=== PATIENT | female | born 1945 | race Caucasian/White ===

== ENCOUNTER 2016-08-23 14:40 | Emergency (ER) | payer MEDICARE, OTHER ==
[~2016-08-23] VITALS: Wt 71.0 kg
[~2016-08-23 14:40] MED LIST: CARV20CP PO; LEVO125T58 PO; LISI10TA2 PO; METF500T4 PO; OMEP20CA16 PO; PRAM0.5T18 PO; ROSU20TA PO; SITA50TA2 PO; ULT50
[2016-08-23] MEDS ORDERED: ONDANSETRON (ODT) 4 MG TAB ODT STA (18:11)
[2016-08-23] MEDS ORDERED: OXYCODONE/ACETAMINOPHEN (5/325) TAB PO ONE (18:30)
[2016-08-23] MEDS ORDERED: hydrALAzine 20 MG INJ IM ONE (18:30)
--- NOTE | 2016-08-23 19:16 | RADRPT ---
PROCEDURE: XR Knee. CLINICAL INDICATION: Pain TECHNIQUE: 3 views of the right knee are available for review. COMPARISON: None available FINDINGS: Right knee prosthesis is identified in anatomic location. No acute fracture or dislocation is seen. Alignment is anatomic. There is no joint effusion. No other abnormality is identified. RPTAT: ZZ IMPRESSION: 1. Right knee replacement in anatomic location. 2. No acute fracture or dislocation is seen. .Shantel Frank MD, MD Date Time Electronically viewed and signed by .Shantel Frank MD, on 08/23/2016 19:15 .T/
--- NOTE | 2016-08-23 19:27 | ERD ---
ER Documentation Chief Complaint Date/Time DATE: 08/23/16 TIME: 19:22 Chief Complaint right knee pain for the past 3 days. no deformity or trauma HPI Patient reports right knee pain for the last 3 days. She states the knee pain started after she was trying to get up off of the couch that was very low to the ground. She does not report any direct trauma to the knee. She does not report any fever, swelling, redness, rashes, calf pain or tenderness. She says the pain has progressively worsened. She says the pain is worse when she tries to stay in the morning and better when she is lying still. She had a knee replacement done 2 years ago and has done well until several days ago. ROS All systems reviewed and are negative except as per history of present illness. Medications Home Meds Reported Medications Tramadol HCl (Tramadol HCl) 50 Mg Tablet 08/19/12 Pramipexole* (Mirapex*) 0.5 Mg Tablet, 0.5 MG PO PRN 08/19/12 Omeprazole* (Omeprazole*) 20 Mg Capsule.dr, 20 MG PO BID 08/19/12 Rosuvastatin Calcium* (Crestor*) 20 Mg Tablet, 20 MG PO HS 10/10/11 Lisinopril* (Lisinopril*) 10 Mg Tablet, 10 MG PO DAILY 10/10/11 Metformin* (Glucophage*) 500 Mg Tab, 500 MG PO BID 10/10/11 Sitagliptin* (Januvia*) 50 Mg Tablet, 50 MG PO DAILY 10/10/11 Levothyroxine Sodium (Levothroid) 125 Mcg Tablet, 125 MCG PO DAILY 10/10/11 Carvedilol Phosphate CR* (Coreg Cr*) 20 Mg Cpmp.24hr, 20 MG PO DAILY 10/10/11 Allergies Allergies: Coded Allergies: No Known Allergy (Unverified , 08/19/12) PMhx/Soc History of Surgery: Yes (tyhroid remove, uterus and ovary removed, left knee replaced, kidney ston) Anesthesia Reaction: No Hx Neurological Disorder: No Hx Respiratory Disorders: No Hx Cardiac Disorders: Yes (htn, hyperlipidemia) Hx Psychiatric Problems: No Hx Miscellaneous Medical Probl: Yes (oa) Hx Alcohol Use: No Hx Substance Use: No Hx Tobacco Use: No Smoking Status: Never smoker Physical Exam Vitals Vital Signs Date Time Temp Pulse Resp B/P Pulse Ox O2 Delivery O2 Flow Rate FiO2 08/23/16 14:54 98.5 58 20 219/108 100 Physical Exam Const: Well-developed well-nourished female lying on the bed in no acute distress Head: Atraumatic normocephalic Resp: Clear to auscultation bilaterally Cardio: Regular rate and rhythm, no murmurs Abd: Soft, non tender, non distended. Normal bowel sounds Skin: No petechiae or rashes Ext: No cyanosis, or edema, patient reports tenderness to palpation along the right lateral joint line. There are no deformities or crepitus appreciated. She does have some decreased range of motion of the right knee. I do not appreciate any significant joint effusion. There is no overlying erythema or warmth noted. Neur: Awake and alert oriented 3 Psych: Normal Mood and Affect Results 24 hrs Current Medications Medications (Trade) Dose Ordered Sig/Robert Route PRN Reason Start Time Stop Time Status Last Admin Dose Admin Oxycodone/ Acetaminophen (Percocet (5/ 325)) 2 tab ONCE ONCE PO 08/23/16 18:30 08/23/16 18:31 DC 08/23/16 18:30 Ondansetron HCl (Zofran Odt) 4 mg ONCE STAT ODT 08/23/16 18:11 08/23/16 18:13 DC 08/23/16 18:30 Hydralazine HCl (Apresoline) 20 mg ONCE ONCE IM 08/23/16 18:30 08/23/16 18:31 DC Procedures/MDM X-ray does not demonstrate any fractures or dislocations Departure Diagnosis: Primary Impression: Knee pain Laterality: right Chronicity: acute Qualified Code: M25.561 - Acute pain of right knee Condition: Stable Patient Instructions: Knee Immobilizer, Knee Pain, Uncertain Cause, Using Crutches (Weight-Bearing) Additional Instructions: Wear the knee immobilizer and use the crutches for comfort. Please call your orthopedic doctor that did your surgery on her knee and schedule a follow-up appointment with him or her. You may need further evaluation for this knee pain which might include an MRI however this is up to that physician to schedule if needed. Please take the medications as needed for ear pain. Return to the emergency department for any further evaluation if you develop new symptoms. PJ VELASQUEZ Aug 23, 2016 19:27
[2016-08-23] MEDS ORDERED: HYDR-906 PO (19:28)
[2016-08-23] MEDS ORDERED: ETOD300C26 PO (19:28)
[2016-08-23] MEDS ORDERED: ONDA4TAB8 PO (19:29)
[2016-08-23 19:44] VITALS: BP 137/87; PULSE 51; RESP 12; TEMP 97.7
== END 2016-08-23 19:55 | disposition home or self-care (01) ==
LOC: E/R 14:40
DX: M25.561 Pain in right knee (principal); I10 Essential (primary) hypertension; E11.9 Type 2 diabetes mellitus without complications; Z96.652 Presence of left artificial knee joint; Z79.84 Long term (current) use of oral hypoglycemic drugs
CPT/HCPCS: 29505; 73562; J0360

== ENCOUNTER 2018-01-02 03:04 | Inpatient (IN) | END 2018-01-07 11:40 | disposition home or self-care (01) | DRG 872 ==

== ENCOUNTER 2018-11-02 09:23 | Emergency (ER) | payer MEDICARE, OTHER ==
[~2018-11-02] VITALS: Ht 167.6 cm; Wt 97.2 kg
[~2018-11-02 09:23] MED LIST changes: +ASPI-817 PO; +BENA20TA4 PO; -CARV20CP PO; +CARV3.1260 PO; +CEPH-443 PO; +DAPA5TAB PO; +HYDR-4011 PO; -LISI10TA2 PO; +METF-849 PO; -METF500T4 PO; -PRAM0.5T18 PO; +PRAM0.5T5 PO; +TRAM50TA2; -ULT50
[2018-11-02 09:39] VITALS: Ht 167.6 cm; Wt 97.2 kg
[2018-11-02] MEDS ORDERED: ONDANSETRON 4 MG INJ IV STA (11:06)
[2018-11-02] MEDS: HYDROmorphONE 1 MG/ML SYG IV STA ×2 (11:42→11:53)
[2018-11-02] MEDS ORDERED: SOD CHLORIDE 0.9% 100 ML ONE (12:05)
[2018-11-02] MEDS ORDERED: IOHEXOL 300MG/ML 150 ML BTL ONE (12:05)
[2018-11-02] MEDS ORDERED: LEVO112T42 PO (12:51)
[2018-11-02] MEDS ORDERED: ATOR10TA65 PO (12:51)
[2018-11-02] MEDS ORDERED: OMEP40CA6 PO (12:52)
[2018-11-02] MEDS ORDERED: CYAN50TA PO (12:52)
[2018-11-02] MEDS ORDERED: CHOL100062 PO (12:52)
[2018-11-02] MEDS ORDERED: IRBE150T19 PO (12:52)
--- NOTE | 2018-11-02 13:35 | ERD ---
ER Documentation Chief Complaint Chief Complaint Complains of abdominal pain withurine problems x 3 days HPI This is a 73-year-old female complains of left lower quadrant pain for the past 3 days. The pain is a constant dull ache. No nausea vomiting or diarrhea no fever. No pain in the back no hematuria or dysuria. Pain is nonradiating ROS All systems reviewed and are negative except as per history of present illness. Medications Home Meds Active Scripts Carvedilol* (Carvedilol*) 3.125 Mg Tablet, 3.125 MG PO BID for 30 Days, #60 TAB 1 Refill Prov:LYNDON BRADFORD 01/07/18 Reported Medications Cyanocobalamin* (Vitamin B-12*) 50 Mcg Tablet, 50 MCG PO DAILY, TAB 11/02/18 Cholecalciferol* (Vitamin D3*) 1,000 Unit Tablet, 1000 UNIT PO DAILY, TAB 11/02/18 Irbesartan* (Avapro*) 150 Mg Tablet, 150 MG PO DAILY, TAB 11/02/18 Omeprazole* (Omeprazole*) 40 Mg Capsule.dr, 40 MG PO DAILY, #30 CAP 11/02/18 Levothyroxine Sodium* (Levoxyl*) 112 Mcg Tablet, 112 MCG PO BEFORE BREAKFAST, #30 TAB 11/02/18 Atorvastatin Calcium (Atorvastatin Calcium) 10 Mg Tablet, 10 MG PO QHS, #30 TAB 11/02/18 Dapagliflozin Propanediol (Farxiga) 5 Mg Tablet, 5 MG PO DAILY, #30 TAB 01/02/18 Metformin* (Glucophage*) 500 Mg Tab, 500 MG PO BID 10/10/11 Discontinued Reported Medications Aspirin* (Aspirin* EC) 81 Mg Tablet.dr, 81 MG PO DAILY, TAB 01/02/18 Benazepril Hcl* (Benazepril Hcl*) 20 Mg Tablet, 20 MG PO DAILY, #30 TAB 01/02/18 Tramadol HCl (Tramadol HCl) 50 Mg Tablet 08/19/12 Pramipexole* (Mirapex*) 0.5 Mg Tablet, 0.5 MG PO PRN 08/19/12 Omeprazole* (Omeprazole*) 20 Mg Capsule.dr, 20 MG PO BID 08/19/12 Rosuvastatin Calcium* (Crestor*) 20 Mg Tablet, 20 MG PO HS 10/10/11 Sitagliptin* (Januvia*) 50 Mg Tablet, 50 MG PO DAILY 10/10/11 Levothyroxine Sodium (Levothroid) 125 Mcg Tablet, 112 MCG PO DAILY 10/10/11 Discontinued Scripts Cephalexin* (Keflex*) 500 Mg Capsule, 500 MG PO Q8 for 7 Days, #21 CAP Prov:LYNDON BRADFORD 01/07/18 Hydrocodone/Acetaminophen (Easley 5-325 Tablet) 1 Each Tablet, 2 TAB PO Q6H PRN for PAIN, #20 TAB 0 Refills Prov:PJ VELASQUEZ 08/23/16 Allergies Allergies: Coded Allergies: hydromorphone (Verified Allergy, Severe, 11/02/18) hydrocodone (Verified Allergy, Intermediate, NAUSEOUS, 11/02/18) PMhx/Soc History of Surgery: Yes (Hysterectomy, thyroid surgery, bilateral knee replacement, back surgery, ki) Anesthesia Reaction: No Hx Neurological Disorder: No Hx Respiratory Disorders: No Hx Cardiac Disorders: Yes (HTN, hyperlipidemia) Hx Psychiatric Problems: No Hx Miscellaneous Medical Probl: No Hx Alcohol Use: No Hx Substance Use: No Hx Tobacco Use: No Smoking Status: Never smoker FmHx Family History: No coronary disease Physical Exam Vitals Vital Signs Date Temp Pulse Resp B/P (MAP) Pulse Ox O2 O2 Flow FiO2 Time Delivery Rate 11/02/18 72 20 113/86 98 Room Air 11:30 (95) 11/02/18 98.2 76 20 152/81 97 09:39 (104) Physical Exam Const: Well-developed, well-nourished Head: Atraumatic, normocephalic Eyes: Normal Conjunctiva, PERRLA, EOMI, normal sclera, no nystagmus ENT: Normal External Ears, Nose and Mouth, moist mucus membranes. Neck: Full range of motion. No meningismus, no lymphadenopathy. Resp: Clear to auscultation bilaterally, no wheezing, rhonchi, rales Cardio: Regular rate and rhythm, no murmurs, S1 S2 present Abd: Soft, tender left lower quadrant, non distended. Normal bowel sounds, no guarding or rebound, no pulsitile abdominal masses or bruits Skin: No petechiae or rashes, no ecchymosis , no maculopapular rash Back: No midline or flank tenderness Ext: No cyanosis, or edema, FROM x 4, normal inspection, neurovascularly intact x 4 Neur: Awake and alert, STR 5/5 x 4, sensation intact x 4, no focal findings, cerebellum intact Psych: Normal Mood and Affect Result Diagram: 11/02/18 1112 11/02/18 1112 Results 24 hrs Laboratory Tests Test 11/02/18 11:12 White Blood Count 11.1 10^3/ul Red Blood Count 5.14 10^6/ul Hemoglobin 14.3 g/dl Hematocrit 44.3 % Mean Corpuscular Volume 86.2 fl Mean Corpuscular Hemoglobin 27.8 pg Mean Corpuscular Hemoglobin Concent 32.3 g/dl Red Cell Distribution Width 14.0 % Platelet Count 248 10^3/UL Mean Platelet Volume 10.7 fl Immature Granulocytes % 0.400 % Neutrophils % 68.6 % Lymphocytes % 22.7 % Monocytes % 6.4 % Eosinophils % 1.4 % Basophils % 0.5 % Nucleated Red Blood Cells % 0.0 /100WBC Immature Granulocytes # 0.040 10^3/ul Neutrophils # 7.6 10^3/ul Lymphocytes # 2.5 10^3/ul Monocytes # 0.7 10^3/ul Eosinophils # 0.2 10^3/ul Basophils # 0.1 10^3/ul Nucleated Red Blood Cells # 0.0 10^3/ul Sodium Level 144 mmol/L Potassium Level 4.2 mmol/L Chloride Level 104 mmol/L Carbon Dioxide Level 29 mmol/L Anion Gap 11 Blood Urea Nitrogen 17 mg/dl Creatinine 0.76 mg/dl Est Glomerular Filtrat Rate mL/min mL/min Glucose Level 145 mg/dl Calcium Level 9.6 mg/dl Total Bilirubin 0.7 mg/dl Direct Bilirubin 0.00 mg/dl Indirect Bilirubin 0.7 mg/dl Aspartate Amino Transf (AST/SGOT) 23 IU/L Alanine Aminotransferase (ALT/SGPT) 19 IU/L Alkaline Phosphatase 117 IU/L Total Protein 8.5 g/dl Albumin 4.8 g/dl Globulin 3.70 g/dl Albumin/Globulin Ratio 1.29 Lipase 59 U/L Current Medications Medications Dose Sig/Robert Start Time Status Last (Trade) Ordered Route PRN Stop Time Admin Dose Reason Admin 1 mg ONCE STAT 11/02/18 DC Hydromorphone IV 11:06 HCl 11/02/18 11:07 (Dilaudid) Ondansetron 4 mg ONCE STAT 11/02/18 DC 11/02/18 HCl (Zofran IV 11:06 11:42 Inj) 11/02/18 11:07 IV Flush 10 ml STK-MED 11/02/18 DC 11/02/18 (NS 10 ml) ONCE .ROUTE 12:05 12:22 11/02/18 12:06 Sodium 100 ml @ ud STK-MED 11/02/18 DC 11/02/18 Chloride ONCE .ROUTE 12:05 12:22 11/02/18 12:06 Iohexol 150 ml STK-MED 11/02/18 DC 11/02/18 (Omnipaque ONCE .ROUTE 12: 12:22 300mg/ ml) 11/02/18 12:06 Procedures/MDM PROCEDURE: CT Abdomen and Pelvis with contrast. CLINICAL INDICATION: Abdominal pain. TECHNIQUE: CT scan of the abdomen and pelvis with contrast was performed on a multi-detector high-resolution CT scanner. The patient was scanned following the uncomplicated intravenous administration of 100 cc of Omnipaque 300. Coronal and sagittal reformatted images were obtained from the axial source images. One or more of the following dose reduction techniques were used: Automated exposure control, adjustment of the mA and/or kV according to patient size, use of iterative reconstruction technique. Images were reviewed on a high-resolution PACS workstation. DICOM images are available. The total exam CTDI equals 13.28 mGy and the total exam DLP equals 729.53 mGy-cm. COMPARISON: CT from 01/02/2018. FINDINGS: CT ABDOMEN: Visualized lung bases: No significant infiltrate or pleural/pericardial effusion. The heart size is normal. Liver: Small hypodense hepatic lesions are similar to the prior exam and likely represent cysts. Otherwise, the The liver is normal in size and demonstrates normal overall enhancement. No evidence of solid hepatic mass or intrahepatic ductal dilatation. Patent portal vein. Gallbladder and bile ducts: Gallbladder surgically absent. The biliary tree is unremarkable. Spleen: Unremarkable. Pancreas: Unremarkable. No ductal dilatation, mass, or peripancreatic stranding. Adrenal glands: Unremarkable. Kidneys: Simple-appearing left renal cysts are present. There is a small 2 meters nonobstructive calculus in the left kidney. No focal renal cortical thinning / scarring is present at the superior pole of the left kidney. There is mild chronic left renal pelvis fullness. The right kidney is unremarkable. Vasculature: No abdominal aortic aneurysm. Negative IVC. Lymph nodes: No adenopathy. GI: No hiatal hernia. No evidence of obstruction. Peritoneal cavity: No free fluid or free air. CT PELVIS: GI: There is no evidence of inflamed appendix. Negative terminal ileum. Negative rectum. There is a 6 cm segment of circumferential wall edema with linda diverticular inflammation in the distal sigmoid colon. There is no evidence of abscess or free air. Numerous diverticula are present throughout the sigmoid colon. : Normal appearing bladder, distal ureters, and ureterovesiculal junctions. The uterus is surgically absent. Peritoneal cavity: No free fluid or free air. Lymph nodes: No adenopathy. Osseous structures: Posterior spinal fusion hardware is present L4-L5. No acute osseous injury. No lytic or blastic lesions. Other: None. IMPRESSION: 1. Acute sigmoid diverticulitis. No evidence of abscess or free air. 2. Simple-appearing left renal cyst. 3. Focal renal cortical scarring at the superior pole of the left kidney. 4. Small nonobstructive left renal calculus. 5. Simple appearing hypodense hepatic lesions, stable since prior exam and likely representing simple cysts. RPTAT: JJ .Valeriano Shepherd MD, MD Date Time Electronically viewed and signed by .Valeriano Shepherd MD, MD on 11/02/2018 12:30 .A/ CC: DONNA AUSTIN DO Patient has no evidence of perforation we will treat with diverticulitis care with Cipro Flagyl and pain medication Departure Diagnosis: Primary Impression: Diverticulitis Condition: Stable DONNA AUSTIN DO Nov 02, 2018 13:35
[2018-11-02] MEDS ORDERED: CIPR500T4 PO (13:36)
[2018-11-02] MEDS ORDERED: TRAM50TA2 PO (13:36)
[2018-11-02] MEDS ORDERED: METR500T PO (13:36)
[2018-11-02 14:00] VITALS: BP 109/75; PULSE 63; RESP 18
== END 2018-11-02 14:19 | disposition home or self-care (01) ==
LOC: E/R 09:23
DX: K57.32 Diverticulitis of large intestine without perforation or abscess without bleeding (principal); I10 Essential (primary) hypertension; Z96.653 Presence of artificial knee joint, bilateral; Z79.84 Long term (current) use of oral hypoglycemic drugs
CPT/HCPCS: 36415; 74177; 80053; 83690; 85025; 96374; 99285; J1170; J2405; Q9967